=== PATIENT | female | born 1990 | race Caucasian/White ===

== ENCOUNTER 2020-02-27 20:57 | Emergency (ER) | payer SELFPAY | END 2020-02-27 21:45 | disposition home or self-care (01) | LOC: BURERS 20:57 | DX: J06.9 Acute upper respiratory infection, unspecified (principal); F17.210 Nicotine dependence, cigarettes, uncomplicated | CPT/HCPCS: 99281 ==

== ENCOUNTER 2020-03-15 10:25 | Emergency (ER) | payer SELFPAY ==
[2020-03-15] MEDS ORDERED: Tetracaine 0.5% OPHTH SOLN/PF 4 ML BOT ONE (11:02)
[2020-03-15] MEDS ORDERED: Fluorescein Opthalmic Strip ONE (11:02)
== END 2020-03-15 11:37 | disposition home or self-care (01) ==
LOC: BURERS 10:29
DX: B30.9 Viral conjunctivitis, unspecified (principal); F41.9 Anxiety disorder, unspecified; F32.9 Major depressive disorder, single episode, unspecified; F17.210 Nicotine dependence, cigarettes, uncomplicated; Z79.899 Other long term (current) drug therapy
CPT/HCPCS: 99283

== ENCOUNTER 2020-06-18 21:37 | Emergency (ER) | payer SELFPAY ==
[2020-06-18] MEDS ORDERED: Clindamycin 150 MG CAP ONE (21:53)
[2020-06-18] MEDS ORDERED: HYDROcodone/Acetaminophen 10/325 mg Tablet ONE (21:53)
[2020-06-18] MEDS ORDERED: Ondansetron ODT 4 MG TAB ONE (21:53)
== END 2020-06-18 21:57 | disposition home or self-care (01) ==
LOC: BURERS 21:37
DX: K02.9 Dental caries, unspecified (principal); F17.210 Nicotine dependence, cigarettes, uncomplicated
CPT/HCPCS: 99282; Q0162

== ENCOUNTER 2020-08-02 09:33 | Emergency (ER) | payer SELFPAY | END 2020-08-02 09:52 | disposition home or self-care (01) | LOC: BURERS 09:33 | DX: K02.9 Dental caries, unspecified (principal); F17.210 Nicotine dependence, cigarettes, uncomplicated | CPT/HCPCS: 99281 ==

== ENCOUNTER 2021-06-05 17:47 | Emergency (ER) | payer SELFPAY | END 2021-06-05 18:15 | disposition home or self-care (01) | LOC: BURERS 17:47 | DX: J06.9 Acute upper respiratory infection, unspecified (principal); F17.210 Nicotine dependence, cigarettes, uncomplicated | CPT/HCPCS: 99283 ==

== ENCOUNTER 2022-09-20 19:46 | Emergency (ER) | payer MEDICAID ==
[2022-09-20] MEDS ORDERED: cefTRIAXone (ROCEPHIN) 1 GM VIAL ONE (20:04)
[2022-09-20] MEDS ORDERED: Ketorolac Tromethamine 60 MG/2 ML VIAL ONE (20:04)
[2022-09-20] MEDS ORDERED: Dexamethasone 10 MG/ML VIAL ONE (20:04)
== END 2022-09-20 20:35 | disposition home or self-care (01) ==
LOC: BURERS 19:46
DX: K08.89 Other specified disorders of teeth and supporting structures (principal); F17.210 Nicotine dependence, cigarettes, uncomplicated
CPT/HCPCS: 96372; 99283; J0696; J1100; J1885

== ENCOUNTER 2022-11-03 21:59 | Emergency (ER) | payer OTHER | END 2022-11-03 22:35 | disposition home or self-care (01) | LOC: BURERS 21:59 | DX: K08.89 Other specified disorders of teeth and supporting structures (principal); F17.210 Nicotine dependence, cigarettes, uncomplicated | CPT/HCPCS: 99282 ==